=== PATIENT | female | born 1955 | race Caucasian/White ===

== ENCOUNTER → 2016-12-25 | Outpatient (CLI) | payer BC, OTHER ==
[~2016-12-25] MED LIST: ATOR10TA88 PO; BIOT1CAP3 PO; CHOL2000 PO; CIPR-255 PO; CYAN30SU PO; HYDR-5688 PO; METH500T37 PO; METR-163 PO; MINO100T PO; VENL-271 PO; VITAMIN B12 GUMMIES PO
--- NOTE | 2016-12-25 16:45 | MAMMOGRAPHY REPORT ---
BILATERAL DIGITAL SCREENING MAMMOGRAM TOMOSYNTHESIS WITH CAD: 12/25/2016 TECHNIQUE: Breast tomosynthesis in addition to standard 2D mammography was performed. Current study was also evaluated with a Computer Aided Detection (CAD) system. COMPARISON: Comparison is made to exams dated: 12/07/2015 mammogram, 12/04/2013 mammogram, 10/13/2012 mammogram, 12/06/2014 mammogram, 10/10/2011 mammogram, and 10/19/2010 mammogram - [facility]. BREAST COMPOSITION: The tissue of both breasts is almost entirely fatty. FINDINGS: No suspicious masses, calcifications, or areas of architectural distortion are noted in e ither breast. There has been no significant interval change compared to prior exams. IMPRESSION: ACR BI-RADS CATEGORY 1: NEGATIVE There is no mammographic evidence of malignancy. A 1 year screening mammogram is recommended. The p atient will receive written notification of the results. Approximately 10% of breast cancers are not detected with mammography. A negative mammographic repor t should not delay biopsy if a clinically suggestive mass is present. Bruna Lion M.D. ah/:12/25/2016 14:02:12 Pack Changer: Bibi HERRERA(R)(M), [facility] letter sent: Normal 1/2 BI-RADS Code: ACR BI-RADS Category 1: Negative
== END | disposition home or self-care (01) ==
LOC: C.MAMM 13:18
PROVIDERS: ATTEND Nurse Practitioner
DX: Z12.31 Encounter for screening mammogram for malignant neoplasm of breast (principal)

== ENCOUNTER → 2017-01-21 | Outpatient (CLI) | payer BC, OTHER ==
[2017-01-21 12:50] LABS: BLOOD UREA NITROGEN 16 mg/dl (7-18); CALCIUM 9.1 mg/dl (8.5-10.1); CARBON DIOXIDE 31 mmol/L (21-32); CHLORIDE 104 mmol/L (98-107); CREATININE 0.97 mg/dl (0.60-1.20); GLUCOSE 92 mg/dl (70-99); POTASSIUM 4.5 mmol/L (3.5-5.1); SODIUM 141 mmol/L (136-145)
[2017-01-21 12:53] LABS: CHOLESTEROL 259 mg/dl (0-200); HDL CHOLESTEROL 52 mg/dl; LDL CHOLESTEROL CALCULATED 161 mg/dl; TRIGLYCERIDES 228 mg/dl (0-150); VERY LOW DENSITY LIPOPROT CALC 46 mg/dl
== END | disposition home or self-care (01) ==
LOC: C.LABPVFM 10:21
PROVIDERS: ATTEND Nurse Practitioner
DX: E78.5 Hyperlipidemia, unspecified (principal)

== ENCOUNTER → 2017-03-07 | Outpatient (CLI) | payer OTHER, BC ==
[~2017-03-07] MED LIST changes: +ATOR10TA82 PO; -ATOR10TA88 PO
--- NOTE | 2017-03-07 13:20 | DIAGNOSTIC IMAGING REPORT ---
CERVICAL SPINE 5 VIEWS CLINICAL HISTORY: Neck pain. FINDINGS: AP, lateral, bilateral oblique, and odontoid views of the cervical spine are compared to study dated 04/27/2014. The skeletal structures are osteopenic. There is no radiographic evidence of fracture or subluxation. The odontoid process and lateral masses appear intact on the open mouth view. Productive degenerative changes noted the atlantodental joint. The spinolaminar line is preserved. Vertebral body height and alignment are maintained. There is straightening of cervical lordosis with mild reversal centered at C4. The spinous processes appear intact. Small anterior osteophytes are seen in the lower cervical region. There is [id number] degenerative disc space narrowing seen from C4-C5 through C6-C7. Posterior disc osteophyte complexes at C4-C5, C5-C6, and C6-C7 may contribute to mild acquired compromise of the central canal. There is no evidence of significant neuroforaminal stenosis on the oblique views. The prevertebral soft tissues are within normal limits. Visualized apical lung parenchyma appears clear. IMPRESSION: 1. There is no acute bony abnormality identified involving the cervical spine. 2. Osteopenia and mild spondylotic change as above. Electronically signed by: Ravin Palmer M.D. 03/07/2017 1:19 PM Dictated Date/Time: 03/07/2017 1:17 PM
--- NOTE | 2017-03-07 14:31 | DIAGNOSTIC IMAGING REPORT ---
PA CHEST WITH LEFT-SIDED RIB SERIES CLINICAL HISTORY: Left-sided chest wall pain. FINDINGS: A PA chest radiograph with 4 additional views may right-sided rib series are obtained. No prior studies are available for comparison at the time of dictation. The PA view is degraded by apical lordotic positioning. The cardiomediastinal silhouette is unremarkable. The lungs and pleural spaces are clear. No pneumothorax is seen. The skeletal structures are osteopenic. There is no radiographic evidence of left-sided rib fracture on the rib series as clinically queried. The remainder of the bony thorax is grossly intact. IMPRESSION: 1. The lungs are clear. 2. There is no radiographic evidence of left-sided rib fracture as clinically queried. Electronically signed by: Ravin Palmer M.D. 03/07/2017 2:30 PM Dictated Date/Time: 03/07/2017 2:27 PM
== END | disposition home or self-care (01) ==
LOC: C.RADPV 11:47
PROVIDERS: ATTEND Nurse Practitioner
DX: M54.2 Cervicalgia (principal); R07.81 Pleurodynia

== ENCOUNTER → 2017-03-11 | Outpatient (CLI) | payer OTHER, BC ==
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
== END | disposition home or self-care (01) ==
LOC: C.CTS 15:11
PROVIDERS: ATTEND Nurse Practitioner
DX: G44.309 Post-traumatic headache, unspecified, not intractable (principal); S06.0X0A Concussion without loss of consciousness, initial encounter; V89.2XXA Person injured in unspecified motor-vehicle accident, traffic, initial encounter

== ENCOUNTER 2017-04-21 13:17 | Emergency (ER) | payer BC, OTHER ==
[~2017-04-21] VITALS: Ht 157.5 cm; Wt 93.7 kg
[~2017-04-21 13:17] MED LIST changes: -CIPR-255 PO; -CYAN30SU PO; -HYDR-5688 PO; -METH500T37 PO; -METR-163 PO
[2017-04-21 13:19] VITALS: TEMP 37.2; Ht 157.5 cm; Wt 93.7 kg
[2017-04-21] MEDS ORDERED: KETOROLAC TROMETHAMINE 30 MG/ML VIAL IV STA (13:38)
[2017-04-21] MEDS ORDERED: ONDANSETRON INJ 2 MG/ML 2 ML VIAL IV STA (13:38)
[2017-04-21] MEDS ORDERED: SODIUM CHLORIDE 0.9% 1000ML 1,000 ML IV STA (13:38)
[2017-04-21] MEDS ORDERED: TAMSULOSIN HCL 0.4 MG CAP PO ONE (13:45)
[2017-04-21 14:21] LABS: BASO % 0.3 %; BASO ABS # 0.03 K/uL (0-0.2); COMPLETE YES; EOS % 1.3 %; HEMATOCRIT 41.4 % (37-47); IG% 0.3 %; LYMPH ABS # 1.58 K/uL (1.2-3.4); MEAN CELL VOLUME 90.8 fL (80-100); MEAN CORPUSCULAR HEMOGLOBIN 31.1 pg (25-34); MEAN CORPUSCULAR HGB CONC 34.3 g/dl (32-36); MEAN PLATELET VOLUME 8.5 fL (7.4-10.4); MONO % 7.1 %; PLATELET COUNT 239 K/uL (130-400); RED BLOOD COUNT 4.56 M/uL (4.2-5.4); WHITE BLOOD COUNT 11.31 K/uL (4.8-10.8)
[2017-04-21 14:38] LABS: BUN/CREATININE RATIO 12.3 (10-20); CALCIUM 8.9 mg/dl (8.5-10.1); CREATININE 0.87 mg/dl (0.60-1.20); POTASSIUM 3.8 mmol/L (3.5-5.1)
--- NOTE | 2017-04-21 14:58 | DIAGNOSTIC IMAGING REPORT ---
CT SCAN OF THE ABDOMEN AND PELVIS WITHOUT CONTRAST CLINICAL HISTORY: left lower quadrant pain/hematuria COMPARISON STUDY: August 2006 TECHNIQUE: CT scan of the abdomen and pelvis was performed from the lung bases to the proximal femurs. Images are reviewed in the axial, sagittal, and coronal planes. IV contrast was not administered for this examination. CT DOSE: 1413.69 mGy.cm FINDINGS: Lower chest: The heart is normal in size and configuration, without pericardial effusion. The lung bases and pleural spaces are clear. Liver: The unenhanced liver is normal in size, contour, and attenuation. There is no intrahepatic biliary ductal dilatation. Gallbladder: Unremarkable. Spleen: Normal in size and attenuation. Pancreas: Unremarkable. Adrenal glands: Unremarkable. Kidneys: The unenhanced kidneys are normal in size without hydronephrosis. There is no contour deforming renal mass lesion. No renal calculi are identified. No ureteral calculi are visualized. Bowel: There are no transition zones indicate bowel obstruction. There is evidence of acute diverticulitis at the descending colon and sigmoid colon junction. The appendix appears normal. Peritoneum: There is no intraperitoneal free air or abdominal ascites. Vasculature: The abdominal aorta is normal in course and caliber. Adenopathy: None. Pelvic viscera: The bladder, and pelvic viscera are unremarkable. Skeletal structures: Sclerotic changes involve the left symphysis pubis, likely on a stress-related basis. There is also SI joint sclerosis. IMPRESSION: Acute diverticulitis at the sigmoid colon/descending colon junction. No evidence of peridiverticular abscess. No evidence of bowel obstruction. Electronically signed by: Jefferson Paula M.D. 04/21/2017 2:57 PM Dictated Date/Time: 04/21/2017 2:52 PM
[2017-04-21] MEDS ORDERED: METRONIDAZOLE 250 MG TAB PO STA (15:10)
[2017-04-21] MEDS ORDERED: CIPROFLOXACIN 500 MG TAB PO STA (15:10)
[2017-04-21] MEDS ORDERED: METR-163 PO (15:19)
[2017-04-21] MEDS ORDERED: HYDR-5688 PO (15:19)
[2017-04-21] MEDS ORDERED: CIPR-255 PO (15:19)
[2017-04-21 15:21] LABS: URINE APPEARANCE CLOUDY (CLEAR); URINE BILIRUBIN NEG (NEG); URINE COLOR YELLOW; URINE EPITHELIAL CELL AUTO >30 /lpf (0-5); URINE NITRITE NEG (NEG); URINE SPECIFIC GRAVITY 1.022 (1.000-1.030); UROBILINOGEN NEG (NEG); ZZUR CULT IF INDIC CLEAN CATCH NO
--- NOTE | 2017-04-21 15:21 | EMERGENCY ROOM VISIT NOTE ---
History First contact with patient: 13:27 Chief Complaint: ABDOMINAL PAIN Stated Complaint: SEVERE ABD. PAIN History of Present Illness The patient is a 61 year old female who presents to the Emergency Room with complaints of left lower quadrant pain which started yesterday morning. The patient states since that time the pain has dispersed and covers a larger area on her left side and now she is having pain into her left back. The patient admits to some nausea but denies any vomiting. The patient states that her bowel movements are unchanged. They are slightly loose but are regular. She denies any hematochezia or melena. The patient denies any urinary symptoms of dysuria, hematuria, urgency or dysuria. The patient denies any history of kidney stones. The patient has a family history of kidney stones in her father and sibling. The patient states at 2:30 this morning she woke up with increased pain in the left lower quadrant and had diaphoresis. She thought she would have to come to the emergency room but her symptoms then improved. She states the pain is less today than it was earlier in the a.m. she went to [facility] today and they sent her to the emergency room since she had blood in leukocytes in her urine. Review of Systems 10 system review was performed and was negative unless stated otherwise history of present illness. Past Medical/Surgical History Asthma, tonsillectomy, arthroscopic knee surgery, and in bunionectomy, carpal tunnel syndrome Social History Smoking Status: Current Every Day Smoker Alcohol Use: occasionally Marital Status: single Housing Status: lives with significant other Occupation Status: retired Current/Historical Medications Scheduled Atorvastatin (Lipitor), 10 MG PO HS Biotin (Biotin), 5,000 MG PO QAM Cholecalciferol (Vitamin D3), 2,000 MG PO QAM Minocycline Hcl (Minocycline Hcl), 100 MG PO QAM Venlafaxine Hcl (Venlafaxine Hcl Er), 37.5 MG PO QAM [Vitamin B12 Gummies], 500 MG PO QAM Allergies Coded Allergies: No Known Allergies (Unverified , 05/17/16) Physical Exam Vital Signs Date Time Temp Pulse Resp B/P (MAP) Pulse Ox O2 Delivery O2 Flow Rate FiO2 04/21/17 13:19 37.2 90 18 134/90 97 Room Air Physical Exam GENERAL: 61-year-old white female appears in no acute distress. MENTAL Status: Alert and oriented 3. MOUTH: Mucosa is moist NECK: Supple, no lymphadenopathy noted. No carotid bruits noted. LUNGS: Clear auscultation without wheezes rales or rhonchi. CARDIAC: Regular rate and rhythm without murmur. Pulses is full and equal throughout. BACK: No CVA tenderness noted. ABDOMEN: Positive bowel sounds all 4 quadrants. Soft, tenderness palpation in the left lower quadrant otherwise nontender to palpation without organomegaly or masses. EXTREMITIES: No cyanosis or edema noted. Medical Decision & Procedures ER Provider Diagnostic Interpretation: CT SCAN OF THE ABDOMEN AND PELVIS WITHOUT CONTRAST CLINICAL HISTORY: left lower quadrant pain/hematuria COMPARISON STUDY: August 2006 TECHNIQUE: CT scan of the abdomen and pelvis was performed from the lung bases to the proximal femurs. Images are reviewed in the axial, sagittal, and coronal planes. IV contrast was not administered for this examination. CT DOSE: 1413.69 mGy.cm FINDINGS: Lower chest: The heart is normal in size and configuration, without pericardial effusion. The lung bases and pleural spaces are clear. Liver: The unenhanced liver is normal in size, contour, and attenuation. There is no intrahepatic biliary ductal dilatation. Gallbladder: Unremarkable. Spleen: Normal in size and attenuation. Pancreas: Unremarkable. Adrenal glands: Unremarkable. Kidneys: The unenhanced kidneys are normal in size without hydronephrosis. There is no contour deforming renal mass lesion. No renal calculi are identified. No ureteral calculi are visualized. Bowel: There are no transition zones indicate bowel obstruction. There is evidence of acute diverticulitis at the descending colon and sigmoid colon junction. The appendix appears normal. Peritoneum: There is no intraperitoneal free air or abdominal ascites. Vasculature: The abdominal aorta is normal in course and caliber. Adenopathy: None. Pelvic viscera: The bladder, and pelvic viscera are unremarkable. Skeletal structures: Sclerotic changes involve the left symphysis pubis, likely on a stress-related basis. There is also SI joint sclerosis. IMPRESSION: Acute diverticulitis at the sigmoid colon/descending colon junction. No evidence of peridiverticular abscess. No evidence of bowel obstruction. Electronically signed by: Jefferson Paula M.D. 04/21/2017 2:57 PM Laboratory Results 04/21/17 14:00 Red Blood Count 4.56, Mean Corpuscular Volume 90.8, Mean Corpuscular Hemoglobin 31.1, Mean Corpuscular Hemoglobin Concent 34.3, Mean Platelet Volume 8.5, Neutrophils (%) (Auto) 77.0, Lymphocytes (%) (Auto) 14.0, Monocytes (%) (Auto) 7.1, Eosinophils (%) (Auto) 1.3, Basophils (%) (Auto) 0.3, Neutrophils # (Auto) 8.72, Lymphocytes # (Auto) 1.58, Monocytes # (Auto) 0.80, Eosinophils # (Auto) 0.15, Basophils # (Auto) 0.03 04/21/17 14:00 Test 04/21/17 14:00 04/21/17 15:00 White Blood Count 11.31 K/uL (4.8-10.8) Red Blood Count 4.56 M/uL (4.2-5.4) Hemoglobin 14.2 g/dL (12.0-16.0) Hematocrit 41.4 % (37-47) Mean Corpuscular Volume 90.8 fL (80-100) Mean Corpuscular Hemoglobin 31.1 pg (25-34) Mean Corpuscular Hemoglobin Concent 34.3 g/dl (32-36) Platelet Count 239 K/uL (130-400) Mean Platelet Volume 8.5 fL (7.4-10.4) Neutrophils (%) (Auto) 77.0 % Lymphocytes (%) (Auto) 14.0 % Monocytes (%) (Auto) 7.1 % Eosinophils (%) (Auto) 1.3 % Basophils (%) (Auto) 0.3 % Neutrophils # (Auto) 8.72 K/uL (1.4-6.5) Lymphocytes # (Auto) 1.58 K/uL (1.2-3.4) Monocytes # (Auto) 0.80 K/uL (0.11-0.59) Eosinophils # (Auto) 0.15 K/uL (0-0.5) Basophils # (Auto) 0.03 K/uL (0-0.2) RDW Standard Deviation 47.7 fL (36.4-46.3) RDW Coefficient of Variation 14.3 % (11.5-14.5) Immature Granulocyte % (Auto) 0.3 % Immature Granulocyte # (Auto) 0.03 K/uL (0.00-0.02) Anion Gap 8.0 mmol/L (3-11) Est Creatinine Clear Calc Drug Dose 71.5 ml/min Estimated GFR () 82.8 Estimated GFR (Non- 71.4 BUN/Creatinine Ratio 12.3 (10-20) Calcium Level 8.9 mg/dl (8.5-10.1) Total Bilirubin 0.8 mg/dl (0.2-1) Direct Bilirubin 0.2 mg/dl (0-0.2) Aspartate Amino Transf (AST/SGOT) 12 U/L (15-37) Alanine Aminotransferase (ALT/SGPT) 23 U/L (12-78) Alkaline Phosphatase 97 U/L (45-117) Total Protein 7.2 gm/dl (6.4-8.2) Albumin 3.5 gm/dl (3.4-5.0) Lipase 147 U/L (73-393) Medications Administered Medications (Trade) Dose Ordered Sig/Gabriella Route Start Time Stop Time Status Last Admin Dose Admin Sodium Chloride 1,000 ml @ 999 mls/hr Q1H1M STAT IV 04/21/17 13:38 04/21/17 14:38 DC 04/21/17 14:22 999 MLS/HR Ketorolac Tromethamine (Toradol Inj) 30 mg NOW STAT IV 04/21/17 13:38 04/21/17 13:40 DC 04/21/17 14:22 30 MG Ondansetron HCl (Zofran Inj) 4 mg NOW STAT IV 04/21/17 13:38 04/21/17 13:40 DC 04/21/17 14:23 4 MG Tamsulosin HCl (Flomax Cap) 0.4 mg NOW ONCE PO 04/21/17 13:45 04/21/17 13:46 DC 04/21/17 14:22 0.4 MG ED Course The patient was evaluated. IV access was obtained. The patient was given 1 L normal saline wide-open. The patient was given Toradol 30 mg IV, Zofran 4 mg IV push and Flomax 0.4 mg by mouth. CBC and differential, renal profile, LFTs and lipase levels were ordered. Urinalysis was ordered. CT stone study was ordered and interpreted by the radiologist as above with evidence of diverticulitis in the descending and sigmoid colon.. Labs are reviewed. White count was slightly elevated otherwise unremarkable. The patient was given Cipro 500 mg by mouth and Flagyl 500 mg by mouth while in the emergency room. The patient was informed of all findings and discharged home in stable condition. Medical Decision Differential diagnoses include gastroenteritis, pancreatitis, cholelithiasis, cholecystitis, appendicitis, mesenteric ischemia, pyelonephritis, urinary tract infection, renal colic, diverticulitis, shingles, bowel obstruction, intussusception, hernia, ovarian torsion, ruptured ovarian cyst, Impression Primary Impression: Diverticulitis large intestine Departure Information Dispostion Home / Self-Care Condition GOOD Prescriptions Hydrocodone/Acetaminophen 5MG/325MG (Seymour 5MG/325MG) Tab 1-2 TABLET PO Q6 Y for Pain, #20 TAB For Initial Treatment Prov: Arely Camilo PA-C 04/21/17 Metronidazole (Flagyl) 500 Mg Tab 500 MG PO BID, #20 TAB Prov: Arely Camilo PA-C 04/21/17 Ciprofloxacin Hcl (CIPRO) 500 Mg Tab 500 MG PO BID for 10 Days, #20 TAB Prov: Arely Camilo PA-C 04/21/17 Referrals Torrie Read C.R.N.P (PCP) Forms HOME CARE DOCUMENTATION FORM, IMPORTANT VISIT INFORMATION Patient Instructions ED Diverticulitis, [facility] Additional Instructions Recommend clear liquid diet for 24 hours then advance diet slowly as tolerated. Take Flagyl and Cipro as prescribed. Follow-up with your family doctor in 1 week for reevaluation. Take Seymour as needed for pain. Do not drive while taking the Seymour. If symptoms worsen in the interim, return to ER. Problem Qualifiers Primary Impression: Diverticulitis large intestine Diverticulitis bleeding: without bleeding Diverticulitis complication: without perforation or abscess Qualified Codes: K57.32 - Diverticulitis of large intestine without perforation or abscess without bleeding
[2017-04-21 15:24] VITALS: BP 127/75; PULSE 78; O2SAT 98
[2017-04-21] MEDS ORDERED: CYAN30SU PO (15:28)
[2017-04-21] MEDS ORDERED: METH500T37 PO (15:29)
[2017-04-21 15:36] LABS: MANUAL MICROSCOPIC REQUIRED? NO; REVIEW REQ? NO
== END 2017-04-21 15:31 | disposition home or self-care (01) ==
LOC: C.EDB 13:19 → C.EDC 15:31
DX: K57.32 Diverticulitis of large intestine without perforation or abscess without bleeding (principal); J45.909 Unspecified asthma, uncomplicated; F17.200 Nicotine dependence, unspecified, uncomplicated

== ENCOUNTER → 2017-07-17 | Outpatient (CLI) | payer BC, OTHER ==
[~2017-07-17] MED LIST changes: -ATOR10TA82 PO; -BIOT1CAP3 PO; -CHOL2000 PO; +CIPR-255 PO; +CYAN30SU PO; +METH500T37 PO; +METR-163 PO; -MINO100T PO; -VENL-271 PO; -VITAMIN B12 GUMMIES PO
[2017-07-17 13:58] LABS: CHOLESTEROL/HDL RATIO 3.2
== END | disposition home or self-care (01) ==
LOC: C.LABPVFM 07:59
PROVIDERS: ATTEND Nurse Practitioner
DX: E78.5 Hyperlipidemia, unspecified (principal)

== ENCOUNTER → 2017-09-30 | Outpatient (CLI) | payer BC, OTHER | END | disposition home or self-care (01) | LOC: C.LABPVFM 16:22 | PROVIDERS: ATTEND Nurse Practitioner | DX: N39.0 Urinary tract infection, site not specified (principal) ==

== ENCOUNTER → 2017-10-11 | Outpatient (CLI) | payer BC, OTHER | END | disposition home or self-care (01) | LOC: C.LABPVFM 12:34 | PROVIDERS: ATTEND Nurse Practitioner | DX: N39.0 Urinary tract infection, site not specified (principal); R31.9 Hematuria, unspecified ==

== ENCOUNTER → 2017-10-15 | Outpatient (CLI) | payer BC, OTHER ==
[~2017-10-15] MED LIST changes: +ATOR-22 PO; +BIOT1CAP8 PO; +DICL-201 PO; +MAGNESIUM PO; +METH-307 PO; +METH-445 PO; -METH500T37 PO; +MISCCAP80 PO; +SERT50TA PO; +TURMERIC PO; +VITAMIN B12 PO; +VITAMIN D PO
--- NOTE | 2017-10-29 06:28 | CODING QUERY NO DIAGNOSIS ---
: 1955 TREATMENT RENDERED WITHOUT A DIAGNOSIS To promote full compliance with coding requirements relating to patient care, physician participation is requested in all cases of oenologist uncertainty. Please assist us with providing a diagnosis/symptom for the test(s) below: A diagnosis/symptom was not documented on your Order. A valid diagnosis/symptom is required to bill all insurances. Please remember that we are unable to code a diagnosis of rule out, probable, possible, questionable, or suspected. Tests that require a diagnosis: DOS: 10/15/17 * URINE CYTOLOGY DIAGNOSIS: Provider Signature: Date: Thank you Tayla Graham Health Information Management Once completed, please kindly fax back to [phone] For questions please call [phone]
== END | disposition home or self-care (01) ==
LOC: C.PATHSPEC 12:34
PROVIDERS: ATTEND Nurse Practitioner
DX: R31.9 Hematuria, unspecified (principal); R82.8 Abnormal findings on cytological and histological examination of urine

== ENCOUNTER → 2017-10-28 | Outpatient (CLI) | payer BC, OTHER ==
[~2017-10-28] MED LIST changes: -ATOR-22 PO; -BIOT1CAP8 PO; -DICL-201 PO; -MAGNESIUM PO; -METH-307 PO; -METH-445 PO; +METH500T37 PO; -METR-163 PO; -MISCCAP80 PO; -SERT50TA PO; -TURMERIC PO; -VITAMIN B12 PO; -VITAMIN D PO
== END | disposition home or self-care (01) ==
LOC: C.LABPVFM 13:07
PROVIDERS: ATTEND Nurse Practitioner
DX: N39.0 Urinary tract infection, site not specified (principal)

== ENCOUNTER → 2018-01-21 | Day surgery (SDC) | payer BC, OTHER ==
[2018-01-03 08:23] VITALS: BMI 36.0
[~2018-01-21] VITALS: Ht 157.5 cm; Wt 90.5 kg
[~2018-01-21] MED LIST changes: +ATOR-22 PO; +BIOT1CAP8 PO; -CIPR-255 PO; -CYAN30SU PO; +DICL-201 PO; +LIDOCAINE HCL 2% 2 ML VIAL (20MG/ML) ONE; +MAGNESIUM PO; +METH-307 PO; -METH500T37 PO; +MISCCAP80 PO; +PROPOFOL IV EMULSION 10 MG/ML 20 ML VIAL IV ONE; +SERT50TA PO; +SODIUM CHLORIDE 0.9% 500ML 500 ML IV ONE; +TURMERIC PO; +VITAMIN B12 PO; +VITAMIN D PO
[2018-01-21 08:10] VITALS: Ht 157.5 cm; Wt 90.5 kg
[2018-01-21 08:18] VITALS: TEMP 36.8
--- NOTE | 2018-01-21 08:46 | Endo History and Physical ---
History & Physical Date of Service: Jan 21, 2018. Chief Complaint: Screening Referring Physician: BRIAN NOONAN History of Present Illness 62 yo CF who presents for screening colonoscopy. Past Surgical History Hx Cardiac Surgery: No Hx Internal Defibrillator: No Hx Pacemaker: No Hx Abdominal Surgery: No Hx of Implantable Prosthesis: No Hx Post-Op Nausea and Vomiting: No Hx Cancer Surgery: No Hx Thoracic Surgery: No Hx Orthopedic: Yes (LEFT KNEE ARTHROSCOPY, R/L BUNIONECTOMY, LEFT CTR) Hx Urinary Tract Surgery: No (BLADDER SLING) Family History None Social History Smoking Status: Former Smoker Hx Substance Use: No Hx Alcohol Use: Yes (RARELY "SOCIALLY") Allergies Coded Allergies: No Known Allergies (Unverified , 01/21/18) Current Medications Reported Home Medications Medications Dose Route/Sig Max Daily Dose Days Date Category Dose Instructions [Magnesium] 1 Tab PO QAM 01/03/18 Reported Biotin 1 Mg Cap 1 Cap PO QAM 01/03/18 Reported [Turmeric] 1 Tab PO QAM 01/03/18 Reported [Vitamin D] 1 Tab PO QAM 01/03/18 Reported [Vitamin B12] 1 Dose PO QAM 01/03/18 Reported Probiotic (Probiotic Product) 1 Cap Cap 1 Cap PO QAM 01/03/18 Reported Zoloft (Sertraline HCl) 50 Mg Tab 25 Mg PO QAM 01/03/18 Reported Robaxin (Methocarbamol) 750 Mg Tab 0.5-1 Tab PO Q8 PRN 01/03/18 Reported Voltaren (Diclofenac Sodium) 75 Mg Tabcr 75 Mg PO BID PRN 01/03/18 Reported WITH FOOD Lipitor (Atorvastatin Calcium) 20 Mg Tab 20 Mg PO HS 01/03/18 Reported Vital Signs Weight (Kilograms): 90.45 Height (Feet): 5 Height (Inches): 2 Date Time Temp Pulse Resp B/P (MAP) Pulse Ox O2 Delivery O2 Flow Rate FiO2 01/21/18 08:18 36.8 65 20 130/91 (104) 100 Room Air Physical Exam General Appearance: WD/WN, no apparent distress Respiratory/Chest: Auscultation: breath sounds normal Cardiovascular: Heart Auscultation: RRR Abdomen: Bowel Sounds: normal Inspection & Palpation: soft, non-distended, no tenderness, guarding & rebound Assessment and Plan Assessment: 62 yo CF who presents for screening colonoscopy. Plan: Proceed with colonoscopy.
--- NOTE | 2018-01-21 09:20 | GI REPORT ---
Procedure Date: 01/21/2018 8:42 AM Procedure: Colonoscopy Indications: Screening for colorectal malignant neoplasm Medicines: Monitored Anesthesia Care Complications: No immediate complications. Estimated Blood Loss: Estimated blood loss: none. Procedure: Pre-Anesthesia Assessment: - Prior to the procedure, a History and Physical was performed, and patient medications and allergies were reviewed. The patient's tolerance of previous anesthesia was also reviewed. The risks and benefits of the procedure and the sedation options and risks were discussed with the patient. All questions were answered, and informed consent was obtained. Prior Anticoagulants: The patient has taken no previous anticoagulant or antiplatelet agents. ASA Grade Assessment: II - A patient with mild systemic disease. After reviewing the risks and benefits, the patient was deemed in satisfactory condition to undergo the procedure. After I obtained informed consent, the scope was passed under direct vision. Throughout the procedure, the patient's blood pressure, pulse, and oxygen saturations were monitored continuously. The scope was introduced through the anus and advanced to the terminal ileum. The colonoscopy was performed without difficulty. The patient tolerated the procedure well. The quality of the bowel preparation was good. The terminal ileum, ileocecal valve, appendiceal orifice, and rectum were photographed. Findings: The perianal and digital rectal examinations were normal. Three sessile polyps were found in the sigmoid colon and cecum. The polyps were 5 to 8 mm in size. These polyps were removed with a hot snare. Resection and retrieval were complete. A 3 mm polyp was found in the ascending colon. The polyp was sessile. The polyp was removed with a cold biopsy forceps. Resection and retrieval were complete. Multiple small-mouthed diverticula were found in the sigmoid colon. Non-bleeding internal hemorrhoids were found during retroflexion. The hemorrhoids were small. Impression: - Three 5 to 8 mm polyps in the sigmoid colon and in the cecum, removed with a hot snare. Resected and retrieved. - One 3 mm polyp in the ascending colon, removed with a cold biopsy forceps. Resected and retrieved. - Diverticulosis in the sigmoid colon. - Non-bleeding internal hemorrhoids. Recommendation: - Resume previous diet. - Continue present medications. - Repeat colonoscopy for surveillance based on pathology results. - Return to primary care physician as previously scheduled. Dominguez Mar DO 01/21/2018 9:20:25 AM This report has been signed electronically. Note Initiated On: 01/21/2018 8:42 AM I attest to the content of the Intraoperative Record and orders documented therein, exceptions below
--- NOTE | 2018-01-21 09:25 | Discharge Instructions ---
Endoscopy Patient Instructions Date / Procedure(s) Performed Jan 21, 2018. Colonoscopy Allergy Information Coded Allergies: No Known Allergies (Unverified , 01/21/18) Discharge Date / Findings Jan 21, 2018. Colon polyps Diverticulosis Internal hemorrhoids Medication Instructions OK to resume all medications today as prescribed Reported Home Medications Medications Dose Route/Sig Max Daily Dose Days Date Category Dose Instructions [Magnesium] 1 Tab PO QAM 01/03/18 Reported Biotin 1 Mg Cap 1 Cap PO QAM 01/03/18 Reported [Turmeric] 1 Tab PO QAM 01/03/18 Reported [Vitamin D] 1 Tab PO QAM 01/03/18 Reported [Vitamin B12] 1 Dose PO QAM 01/03/18 Reported Probiotic (Probiotic Product) 1 Cap Cap 1 Cap PO QAM 01/03/18 Reported Zoloft (Sertraline HCl) 50 Mg Tab 25 Mg PO QAM 01/03/18 Reported Robaxin (Methocarbamol) 750 Mg Tab 0.5-1 Tab PO Q8 PRN 01/03/18 Reported Voltaren (Diclofenac Sodium) 75 Mg Tabcr 75 Mg PO BID PRN 01/03/18 Reported WITH FOOD Lipitor (Atorvastatin Calcium) 20 Mg Tab 20 Mg PO HS 01/03/18 Reported Provider Instructions Activity Restrictions - No exercising or heavy lifting for 24 hours. - Do not drink alcohol the day of the procedure. - Do not drive a car or operate machinery until the day after the procedure. - Do not make any important decisions or sign important papers in 24 hours after the procedure. Following Day: - Return to full activity which may include returning to work/school. Diet Start your diet with liquids and light foods (jello, soup, juice, toast). Then eat your usual diet if not nauseated. Treatment For Common After Affects For mild abdominal pain, bloating, or excessive gas: - Rest - Eat lightly - Lie on right side Follow-Up Information Follow-up with BRIAN NOONAN as scheduled Anesthesia Information What You Should Know You have had a procedure that required some medicine to reduce anxiety and discomfort. This treatment is called moderate sedation. After receiving the treatment, you may be sleepy, but you will be able to breathe on your own. The effects of the treatment may last for several hours. Follow these instructions along with Activity/Diet recommendations noted above: * Do NOT do anything where dizziness or clumsiness would be dangerous. * Rest quietly at home today, then you can be up and about tomorrow. * Have a responsible person stay with you the rest of today. * You may have had an I.V. today. If so, you may take the dressing off later today. Recommendations Call your doctor if: * Trouble breathing * Continuous vomiting for more than 24 hours * Temperature above 101 degrees * Severe abdominal pain or bloating * Pain not relieved by pain medicine ordered * There is increased drainage or redness from any incision * A large amount of rectal bleeding greater than 2-3 tablespoons. (If you had a polyp/s removed or have hemorrhoids, a small amount of blood - from the rectum is to be expected.) * You have any unanswered questions or concerns. IN THE EVENT OF A SERIOUS EMERGENCY, GO TO THE NEAREST EMERGENCY ROOM Your discharge instructions were prepared by provider Dominguez Mar. Patient Instructions Signature Page Mariela Rodriguez Patient (or Guardian) Signature/Date: I have read and understand the instructions given to me by my caregivers. Caregiver/RN/Doctor Signature/Date: The above-named patient and/or guardian has received patient instructions on this date. + Original Patient Signature Page (only) stays with chart. Please make copy for patient.
--- NOTE | 2018-01-21 09:47 | Anesthesiology Progress Note ---
Anesthesia Post Op Note Date & Time Jan 21, 2018 at 09:47 Vital Signs Pain Intensity: 0 Vital Signs Past 12 Hours Date Time Temp Pulse Resp B/P (MAP) Pulse Ox O2 Delivery O2 Flow Rate FiO2 01/21/18 09:34 63 16 122/77 (92) 100 Room Air 01/21/18 09:19 69 16 95/61 (72) 98 Room Air 01/21/18 08:18 36.8 65 20 130/91 (104) 100 Room Air Notes Mental Status: alert / awake / arousable, participated in evaluation Pt Amnestic to Procedure: Yes Nausea / Vomiting: adequately controlled Pain: adequately controlled Airway Patency, RR, SpO2: stable & adequate BP & HR: stable & adequate Hydration State: stable & adequate Anesthetic Complications: no major complications apparent
[2018-01-21 09:49] VITALS: BP 116/69; PULSE 62; O2SAT 98
== END | disposition home or self-care (01) ==
LOC: C.GI 07:58
PROVIDERS: ATTEND Internal Medicine
DX: Z12.11 Encounter for screening for malignant neoplasm of colon (principal); D12.5 Benign neoplasm of sigmoid colon; D12.0 Benign neoplasm of cecum; D12.2 Benign neoplasm of ascending colon; K57.30 Diverticulosis of large intestine without perforation or abscess without bleeding; K64.8 Other hemorrhoids; M19.90 Unspecified osteoarthritis, unspecified site; F41.9 Anxiety disorder, unspecified; F32.9 Major depressive disorder, single episode, unspecified; E66.9 Obesity, unspecified; Z98.42 Cataract extraction status, left eye; Z87.891 Personal history of nicotine dependence

== ENCOUNTER → 2018-01-23 | Outpatient (CLI) | payer BC, OTHER ==
[~2018-01-23] MED LIST changes: -LIDOCAINE HCL 2% 2 ML VIAL (20MG/ML) ONE; -PROPOFOL IV EMULSION 10 MG/ML 20 ML VIAL IV ONE; -SODIUM CHLORIDE 0.9% 500ML 500 ML IV ONE
--- NOTE | 2018-01-23 15:17 | MAMMOGRAPHY REPORT ---
BILATERAL DIGITAL SCREENING MAMMOGRAM TOMOSYNTHESIS WITH CAD: 01/23/2018 CLINICAL HISTORY: Routine screening. Patient has no complaints. TECHNIQUE: Breast tomosynthesis in addition to standard 2D mammography was performed. Current study was also evaluated with a Computer Aided Detection (CAD) system. COMPARISON: Comparison is made to exams dated: 12/25/2016 mammogram, 12/07/2015 mammogram, 12/06/2014 m ammogram, 12/04/2013 mammogram, 10/13/2012 mammogram, and 10/10/2011 mammogram - [facility]. BREAST COMPOSITION: The tissue of both breasts is almost entirely fatty. FINDINGS: No suspicious masses, calcifications, or areas of architectural distortion are noted in ei ther breast. There has been no significant interval change compared to prior exams. IMPRESSION: ACR BI-RADS CATEGORY 1: NEGATIVE There is no mammographic evidence of malignancy. A 1 year screening mammogram is recommended. The pa tient will receive written notification of the results. Approximately 10% of breast cancers are not detected with mammography. A negative mammographic report should not delay biopsy if a clinically suggestive mass is present. Bruna Lino M.D. ah/:01/23/2018 13:10:28 [place]: Rox HERRERA(Stephanie)(M), [facility] letter sent: Normal 1/2 BI-RADS Code: ACR BI-RADS Category 1: Negative
== END | disposition home or self-care (01) ==
LOC: C.MAMM 10:22
PROVIDERS: ATTEND Nurse Practitioner
DX: Z12.31 Encounter for screening mammogram for malignant neoplasm of breast (principal)

== ENCOUNTER → 2018-06-27 | Outpatient (CLI) | payer BC, OTHER ==
[~2018-06-27] MED LIST changes: +OPTIRAY 320 IV PRN
--- NOTE | 2018-06-27 15:30 | DIAGNOSTIC IMAGING REPORT ---
CT SCAN OF THE ABDOMEN AND PELVIS WITH IV CONTRAST CLINICAL HISTORY: Generalized abdominal pain. Loss of appetite. COMPARISON STUDY: Abdominal CT dated 04/21/2017. TECHNIQUE: Following the IV administration of 93 cc of Optiray 320, CT scan of the abdomen and pelvis is performed from the lung bases to the proximal femora. Images are reviewed in the axial, sagittal, and coronal planes. IV contrast was administered without complication. A dose lowering technique was utilized adhering to the principles of ALARA. CT DOSE: 761.50 mGy.cm FINDINGS: Lung bases: The heart is normal in size and without pericardial effusion. The lung bases are clear. Liver: The contrast-enhanced liver is normal in size, contour, and attenuation. There is no intrahepatic biliary ductal dilatation. The hepatic veins and portal veins are patent. Gallbladder: Unremarkable. Spleen: Normal in size and attenuation. Pancreas: Unremarkable. Adrenal glands: Unremarkable. Kidneys: The contrast enhanced kidneys are normal in size and without hydronephrosis. The kidneys enhance symmetrically. Abdominal vasculature: The abdominal aorta is normal in course and caliber noting moderate atherosclerotic calcification. 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 Bowel: There is mild colonic diverticulosis without CT evidence of acute diverticulitis. No bowel obstruction is seen. The appendix is well-visualized and normal. Peritoneum: There is no intraperitoneal free air or abdominal ascites. There is a fat-containing umbilical hernia. Lymphadenopathy: None. Pelvic viscera: The bladder, uterus, and adnexa are normal as visualized. Skeletal structures: The skeletal structures are osteopenic. There is mild lumbosacral spondylosis. Sclerotic change is noted in the sacroiliac joints and symphysis pubis. No lytic or blastic lesions are seen. IMPRESSION: 1. There are no acute infectious or inflammatory findings in the abdomen or pelvis. 2. Mild colonic diverticulosis without CT evidence of acute diverticulitis. Electronically signed by: Ravin Palmer M.D. 06/27/2018 3:29 PM Dictated Date/Time: 06/27/2018 3:20 PM
== END | disposition home or self-care (01) ==
LOC: C.CTS 14:27
PROVIDERS: ATTEND Nurse Practitioner
DX: R63.0 Anorexia (principal); R14.0 Abdominal distension (gaseous); R10.9 Unspecified abdominal pain